=== PATIENT | male | born 1980 | race African-American/Black ===

== ENCOUNTER 2017-05-30 13:00 | Inpatient (IN) | payer OTHER ==
--- NOTE | ~2017-05-30 | PN ---
Unit #: [id number] #: [id number] Patient: SARABJIT MART [id number] [facility] [address] [place] [address] [id number] I MR#: [id number] NAME: SARABJIT MART ROOM: [facility] Age: 37 Sex: M Admission Date: 05/30/2017 : 1980 Attending Physician: Jose Raul Shea M.D. Admitting Physician: Jose Raul Shea M.D. Primary Care Physician: Primary Care Physician Elaine AYOUB PROGRESS NOTES DATE May 31, 2017 DISCUSSION Mr. Mart is a 37-year-old male, who was seen today and chart was reviewed and the case was discussed with the staff. He states that he is not requesting any medication but he just wants to get clean from drugs and wants to be able to go to intermodal customer service level of care. Meanwhile, he has been polite, pleasant, and cooperative with the treatment recommendations. MENTAL STATUS EXAMINATION Young male, who was casually dressed with fair personal hygiene and appears to be in no acute distress or discomfort. He was awake and alert with impaired attention and concentration. His mood is anxious with a congruent affect. He denies any suicidal or homicidal ideations. His insight and judgment remain slightly impaired. TREATMENT PLAN We will continue him on his current medications and treatment protocol, and will monitor his response to the medications, and make further adjustments as needed. Dictated by... Emmanuel Falk/anil TD: 06/01/2017 08:39 JOB #: [id number] Unit #: [id number] #: [id number] Patient: SARABJIT MART PROGRESS NOTES Page 1 of 1 X Jose Raul Shea MD PROGRESS NOTE
--- NOTE | ~2017-05-30 | PN ---
Unit #: [id number] #: [id number] Patient: SARABJIT MART [id number] [facility] [address] [place] [address] [id number] I MR#: [id number] NAME: SARABJIT MART ROOM: [facility] Age: 37 Sex: M Admission Date: 05/30/2017 : 1980 Attending Physician: Jose Raul Shea M.D. Admitting Physician: Jose Raul Shea M.D. Primary Care Physician: Primary Care Physician Elaine AZEVEDO NOTES DATE June 03, 2017 DISCUSSION Mr. Mart is a 37-year-old male, who was seen today and chart was reviewed and the case was discussed with the staff. He has been anxious, withdrawn, and rather seclusive to himself, meanwhile, he has been cooperative with the treatment recommendations and he has been taking the medications and tolerating them fairly well with no reported side effects. MENTAL STATUS EXAMINATION Young male, who was casually dressed with fair personal hygiene and appears to be in no acute distress or discomfort. He was awake and alert on interaction with impaired attention and concentration. His mood is anxious with a congruent affect. His insight and judgment remain significantly impaired. TREATMENT PLAN 1. We will continue him on his current medications and treatment protocol, and will monitor his response to the medications, and make further adjustments as needed. 2. We will continue to followup. Dictated by... Emmanuel Falk/anil TD: 06/03/2017 09:39 JOB #: [id number] Unit #: [id number] #: [id number] Patient: SARABJIT MART KATESPERANZA PROGRESS NOTES Page 1 of 1 X Jose Raul Shea MD PROGRESS NOTE
--- NOTE | ~2017-05-30 | PN ---
Unit #: [id number] #: [id number] Patient: SARABJIT MART [id number] [facility] [address] [place] [address] [id number] I MR#: [id number] NAME: SARABJIT MART ROOM: [facility] Age: 37 Sex: M Admission Date: 05/30/2017 : 1980 Attending Physician: Jose Raul Shea M.D. Admitting Physician: Jose Raul Shea M.D. Primary Care Physician: Primary Care Physician Elaine AYOUB PROGRESS NOTES DATE 06/02/2017 DISCUSSION Mr. Mart is a 37-year-old male who was seen today and chart was reviewed and case was discussed with the staff. He has been anxious, withdrawn though has not shown any agitation, irritability and appears to be rather seclusive to himself. Meanwhile, he has been cooperative with treatment recommendations and has been going to therapy groups. MENTAL STATUS EXAMINATION Young male who was casually dressed with fair personal hygiene and appears to be in no acute distress or discomfort. He was awake and alert with impaired attention and concentration. His mood was anxious with congruent affect. He ____ suicidal or homicidal ideation. His insight and judgement remains slightly impaired. TREATMENT PLAN 1. Will continue on his current medications and treatment protocol. Will monitor his response to medications and make further adjustments as needed. 2. Will continue to follow up. Dictated by... Emmanuel Falk/lux TD: 06/02/2017 20:01 JOB #: [id number] Unit #: [id number] #: [id number] Patient: SARABJIT MART KATESPERANZA PROGRESS NOTES Page 1 of 1 X Jose Raul Shea MD PROGRESS NOTE
--- NOTE | ~2017-05-30 | HP ---
Unit #: [id number] #: [id number] Patient: LOCO MART [id number] [place] [address] [id number] MR#: [id number] NAME: LOCO MART ROOM: [facility] Age: 37 Sex: M Admission Date: 05/30/2017 : 1980 Attending Physician: Jose Raul Shea M.D. Admitting Physician: Jose Raul Shea M.D. Primary Care Physician: Primary Care Physician No HISTORY AND PHYSICAL HISTORY OF PRESENT ILLNESS Loco is a 37 year old admitted to [facility] because of his illicit drug use. PAST MEDICAL HISTORY History of illicit drug use to include cocaine and marijuana. PAST SURGICAL HISTORY Nothing reported. ALLERGIES No known drug allergies. SOCIAL HISTORY Smokes, drinks alcohol rarely, admits to illicit drug use. FAMILY HISTORY Medically noncontributory. REVIEW OF SYSTEMS CONSTITUTIONAL: No fever or chills. HEENT: Denies any sore throat, ear pain or runny nose. CARDIOVASCULAR: Denies chest pain, irregular heart rhythm or palpitations. CHEST: Denies shortness of breath or cough. No hemoptysis. GASTROINTESTINAL: Denies nausea, vomiting, diarrhea or chronic constipation. ENDOCRINE: Denies history of increased thirst or urination. No recent significant weight loss or gain. GENITOURINARY: Denies dysuria, frequency, or hematuria. SKIN: Denies any rashes. HEMATOLOGIC: Denies history of increased bleeding or bruising. MUSCULOSKELETAL: Denies any hot, swollen joints. No generalized muscle pain. NEUROLOGIC: Denies problems with vision or speech. No frequent, severe headaches. No numbness, tingling or weakness in any extremities. Denies loss of bladder or bowel control. CURRENT MEDICATIONS 1. Wellbutrin XL 150 mg q day 2. Desyrel 100 mg q.h.s. p.r.n. 3. Milk of Magnesia p.r.n. 4. Maalox p.r.n. Unit #: [id number] #: [id number] Patient: LOCO MART 5. Tylenol p.r.n. 6. Nicotine patch 14 mg q day PHYSICAL EXAMINATION GENERAL: Alert, well-nourished, in no apparent distress. VITAL SIGNS: Blood pressure 124/76, heart rate 70, respirations 16, temperature 98.6. WEIGHT: 174 pounds. HEIGHT: 5'10". SKIN: Warm and dry without rash or lesion. HEENT: Normocephalic. TMs not viewed. Oral and nasal passages clear. Conjunctivae clear. Pupils equal, round and reactive to light and accommodation. Extraocular movements intact. NECK: Supple without lymphadenopathy or thyromegaly. HEART: Regular rate and rhythm without murmur. LUNGS: Clear. ABDOMEN: Soft, nontender. : Not done. EXTREMITIES: No evidence of cyanosis, clubbing or edema. Moves all extremities without focal deficit. NEUROLOGICAL: Grossly within normal limits. Cranial Nerves: II: Visual bermudez are intact. III, IV AND : Extraocular movements are intact. Pupils are equal, round and reactive to light. V: Facial sensation is grossly normal. VII: Facial movements and expression are normal. VIII: Auditory acuity grossly intact. IX, X: Uvula is midline. Phonation is normal. XI: Patient shrugs shoulders and turns head normally. XII: Tongue protrudes in the midline. Sensory and Motor Function: Sensory and motor sensation is grossly normal. Motor: moves all extremities well. Coordination: Gait is normal. Deep Tendon Reflexes: Intact. IMPRESSION Psychiatric admission RECOMMENDATIONS PSYCHIATRIC: Per psychiatrist. MEDICAL: I see no contraindications to participating in facility's activities. MEDICAL PROGNOSIS Good. MEDICAL CONDITION Stable. Dictated by... Ed Orourke/zofia TD: 06/01/2017 01:03 Unit #: [id number] #: [id number] Patient: LOCO MART JOB #: [id number] HISTORY AND PHYSICAL Page 1 of 1 X Guerline Cortes HISTORY AND PHYSICAL
--- NOTE | ~2017-05-30 | PA ---
Unit #: [id number] #: [id number] Patient: SARABJIT MART [id number] [facility] [address] [place] [address] [id number] MR#: [id number] NAME: SARABJIT MART ROOM: [facility] Age: 37 Sex: M Admission Date: 05/30/2017 : 1980 Date of Assessment: Attending Physician: Jose Raul Shea M.D. Admitting Physician: Jose Raul Shea M.D. Primary Care Physician: Primary Care Physician No PSYCHIATRIC ASSESSMENT IDENTIFYING DATA Mr. Sandoval is a 37-year-old, single, disabled, male, who is a resident of [place], [place], and was self-referred to the hospital on a voluntary basis. CHIEF COMPLAINT "I've a drug problem." HISTORY OF PRESENT ILLNESS Mr. Mart is a 37-year-old male with a history of substance abuse and dependence, who was self-referred to the hospital seeking treatment for chemical dependency, stating "I've a drug problem and it has gotten so bad that I want to hurt myself, really wants some help." He does report significant consequences because of his addiction and conflicts with family members, minimal support system, increasing depression, anxiety, irritability, feelings of hopelessness and helplessness, and suicidal ideation stating that he has been having thoughts to "end it" due to his hopelessness about his substance abuse issues and reports that he has had thoughts to shoot himself or hang himself. He reports that he does not want to act on these, but feels if he does not get any help, he could harm himself. He denied any homicidal thoughts; however, was seen to be a significant threat to himself; therefore, recommendation for inpatient level of care for safety and stabilization was made. SUBSTANCE ABUSE HISTORY The patient reports history of alcohol, cannabis, and cocaine abuse, and currently, he reports cannabis and cocaine to be his drug of choice and reports that he is a heavy cannabis user on a daily basis and has been on a binge of cocaine and has been using 3 g 2 to 3 times a week by snorting it. He denies any intravenous drug abuse. PAST PSYCHIATRIC HISTORY The patient has not had any prior inpatient or outpatient psychiatric treatment. Review of the medical records indicate currently he is not active in any treatment program. PAST MEDICAL HISTORY No acute or chronic medical illnesses. ALLERGIES No known medication allergies. Unit #: [id number] #: [id number] Patient: SARABJIT MART CURRENT MEDICATIONS None. PERSONAL AND SOCIAL HISTORY A 37-year-old male, who reports that he is single, unemployed, and has unstable housing, as he has been staying with different friends and family members. MENTAL STATUS EXAMINATION Young male, who was casually dressed with fair personal hygiene, appears to be in no acute distress or discomfort. He was awake and alert on interaction with intact orientation to time, place, and person. His mood was anxious and depressed with a congruent affect. Speech was slow and restricted in content. His thought processes were disorganized with some looseness of associations and suicidal ideations. His insight and judgment remain significantly impaired. DIAGNOSTIC IMPRESSION Psychiatric: Major depressive disorder, recurrent, moderate, without psychotic features; cocaine dependence, moderate; cannabis dependence, moderate. Medical: None. Stressors: Moderate psychosocial stressors. TREATMENT PLAN 1. The patient has presented with a history of mood disorder and substance abuse and has been decompensating and will need inpatient hospitalization for detoxification, safety, and stabilization. We will start him back on his home medications. We will adjust the medications and monitor response. 2. Supportive therapy was provided to the patient. 3. Safe, structured, and nourishing environment will be provided. ESTIMATED LENGTH OF STAY 5 to 7 days. ABILITY TO HELP SELF Limited. WILLINGNESS TO HELP SELF The patient appears to be willing to help self. STRENGTHS 1. Communicative. 2. Cooperative. PROBLEMS 1. Chronic dysphoric symptoms. 2. Chronic chemical dependency. 3. Poor social support system. DISCHARGE CRITERIA This will be contingent upon the patient's ability to show resolution of his depression and his ability to stay safe to himself, particularly after discharge from the hospital. Unit #: [id number] #: [id number] Patient: SARABJIT MART Dictated by..Emmanuel Cruz/rema TD: 05/31/2017 07:14 JOB #: [id number] PSYCHIATRIC ASSESSMENT Page 1 of 1 X Jose Raul Shea MD PSYCHIATRIC ASSESSMENT
--- NOTE | ~2017-05-30 | DS ---
Unit #: [id number] #: [id number] Patient: [facility]ART [id number] [facility] [address] [place] [address] [id number] I MR#: [id number] NAME: SARABJIT MART ROOM: [facility] Age: 37 Sex: M Admission Date: 05/30/2017 : 1980 Discharge Date: 06/03/2017 Attending Physician: Jose Raul Shea M.D. Primary Care Physician: Primary Care Physician No DISCHARGE SUMMARY IDENTIFYING DATA Mr. Mart is a 37-year-old male who is a resident of [place], [place] and was self-referred to the hospital. DISCHARGE DIAGNOSES Psychiatric: Major depressive disorder, recurrent, moderate, without psychotic features; cocaine dependence, moderate. Medical: None. Stressors: Moderate psychosocial stressors. HISTORY OF PRESENT ILLNESS Please see initial psychiatric evaluation for details. PAST PSYCHIATRIC HISTORY Please see initial psychiatric evaluation for details. PAST MEDICAL HISTORY Please see initial psychiatric evaluation for details. HOSPITAL COURSE The patient was admitted to the adult chemical dependency unit at [facility] and was oriented to the hospital environment. Routine p.r.n. medications were initiated, and he was started on Wellbutrin as an antidepressant; however, the patient was seen to be showing very poor insight into his situation and was refusing to accept responsibility for his presentation and was refusing to take medication and was not seen to be benefitting much from treatment and was wanting to leave and was denying any suicidal ideations, intent, or plan and as such, it was decided that he will be discharged home and will continue treatment on an outpatient basis. DISCHARGE CONDITION Stable. PROGNOSIS Guarded. Dictated by... Emmanuel Falk/rema TD: 06/23/2017 18:02 Unit #: [id number] #: [id number] Patient: SARABJIT MART JOB #: [id number] DISCHARGE SUMMARY Page 1 of 1 X Jose Raul Shea MD X DISCHARGE SUMMARY
--- NOTE | ~2017-05-30 | PN ---
Unit #: [id number] #: [id number] Patient: SARABJIT MART [id number] [facility] [address] [place] [address] [id number] I MR#: [id number] NAME: SARABJIT MART ROOM: [facility] Age: 37 Sex: M Admission Date: 05/30/2017 : 1980 Attending Physician: Jose Raul Shea M.D. Admitting Physician: Jose Raul Shea M.D. Primary Care Physician: Primary Care Physician Elaine AZEVEDO NOTES DATE OF SERVICE: 06/01/2017 SUBJECTIVE Mr. Mart is a 37-year-old male, who was seen today and chart was reviewed, and case was discussed with the staff. He has been anxious, withdrawn, and rather seclusive to himself. Meanwhile, he has been cooperative with treatment recommendations and has been taking the medications and tolerating them fairly well. MENTAL STATUS EXAMINATION Young male, who was casually dressed with fair personal hygiene, appears to be in no acute distress or discomfort. He was awake and alert with impaired attention and concentration. His mood was anxious with a congruent affect. He denies any suicidal or homicidal ideations. His insight and judgment remain slightly impaired. TREATMENT PLAN 1. We will continue on his current medications and treatment protocol. We will monitor his response and make further adjustments as needed. 2. We will continue to follow up. Dictated by... Emmanuel Falk/rodríguezl TD: 06/02/2017 01:26 JOB #: [id number] [facility] PROGRESS NOTES Page 1 of 1 X Jose Raul Shea MD PROGRESS NOTE
[2017-05-31 09:49] LABS: BASOPHIL% 0.7 % (0-2.5); EOSINOPHIL# 0.4 X10e3 (0-0.7); EOSINOPHIL% 6.9 % (0.0-7.0); HEMATOCRIT 42.3 % (38.0-50.0); HEMOGLOBIN 13.5 gm/dL (13.0-16.0); LYMPHOCYTE# 2.3 X10e3 (1.0-3.5); LYMPHOCYTE% 44.7 % (17.0-45.0); MEAN CELL VOLUME 89.9 FL (83-96); MEAN CORPUSCULAR HEMOGLOBIN 28.8 PG (28-34); MEAN PLATELET VOLUME 9.3 FL (6.5-11.5); MONOCYTE# 0.5 X10e3 (0-1.0); MONOCYTE% 10.1 % (3.0-12.0); NEUTROPHIL% 37.6 % (40-75); PLATELET COUNT 208 X10e3 (140-420); RED CELL DISTRIBUTION WIDTH 14.4 % (11.0-15.5); WHITE BLOOD COUNT 5.2 X10e3 (4.0-10.5)
[2017-05-31 10:04] LABS: DIFF IND NO
[2017-05-31 10:22] LABS: BILIRUBIN,TOTAL 0.4 mg/dL (0.2-2.0); BUN/CREATININE RATIO 12.5; CALCIUM SERUM 9.1 mg/dL (8.4-10.2); CREATININE SERUM 1.2 mg/dL (0.6-1.4); GLOM FILT RATE Estimated 88.4 mL/min (>60); POTASSIUM 4.7 mmol/L (3.5-5.1); PROTEIN TOTAL SERUM 6.4 g/dL (6.0-8.3)
[2017-06-02 09:57] LABS: URINE APPEARANCE CLEAR; URINE BILIRUBIN NEG (NEG); URINE BLOOD NEG (NEG); URINE COLOR YELLOW; URINE GLUCOSE NEG (NEG); URINE KETONE NEG (NEG); URINE LEUKOCYTE ESTERASE NEG (NEG); URINE NITRATE NEG (NEG); URINE PH 5.5 (5-8); URINE PROTEIN NEG (NEG); URINE SPECIFIC GRAVITY 1.017 (1.003-1.035); URINE UROBILINOGEN 0.2 MG/DL (NEG)
[2017-06-02 10:17] LABS: AMPHETAMINE NEG (NEG); BARBITURATES NEG (NEG); BENZODIAZEPINES NEG (NEG); COCAINE POS (NEG); MARIJUANA POS (NEG); OPIATES NEG (NEG); TRICYCLIC ANTIDEPRESSANTS NEG (NEG); U METHADONE NEG (NEG)
== END 2017-06-03 14:00 | DRG 885 ==
LOC: P1E 15:11
PROVIDERS: Psychiatry & Neurology Psychiatry
DX: F33.1 Major depressive disorder, recurrent, moderate (principal); F14.20 Cocaine dependence, uncomplicated; F12.20 Cannabis dependence, uncomplicated; F17.200 Nicotine dependence, unspecified, uncomplicated
CPT/HCPCS: 80053; 80307; 81003; 85025

== ENCOUNTER 2017-06-20 16:00 | Inpatient (IN) | payer OTHER ==
[~2017-06-20] VITALS: Ht 175.3 cm; Wt 81.6 kg
--- NOTE | ~2017-06-20 | PN ---
Unit #: [id number] #: [id number] Patient: SARABJIT MART [id number] [facility] [address] [place] [address] [id number] I MR#: [id number] NAME: SARABJIT MART ROOM: [facility] Age: 37 Sex: M Admission Date: 06/20/2017 : 1980 Attending Physician: Jose Raul Shea M.D. Admitting Physician: Jose Raul Shea M.D. Primary Care Physician: Primary Care Physician Elaine AYOUB PROGRESS NOTES DATE 06/22/2017 DISCUSSION Mr. Mart is a 37-year-old, male who was seen today and chart was reviewed and case was discussed with the staff. She has been anxious, withdrawn and rather seclusive to herself. She has been cooperative with treatment recommendations. She has been taking the medication and tolerating them fairly well with no reported side effects. MENTAL STATUS EXAM Young male who was casually dressed with fair personal hygiene, appears to be in no acute distress or discomfort. She was awake and alert with impaired attention and concentration. Her mood was anxious with congruent affect. She denies any suicidal or homicidal ideation. His insight and judgement remains slightly impaired. TREATMENT PLAN 1. We will continue him on his current medications and treatment protocol. We will monitor her response and make further adjustments as needed. 2. We will continue to follow up. Dictated by... Emmanuel Falk/zofia TD: 06/22/2017 22:13 JOB #: [id number] Unit #: [id number] #: [id number] Patient: SARABJIT MART PROGRESS NOTES Page 1 of 1 X Jose Raul Shea MD PROGRESS NOTE
--- NOTE | ~2017-06-20 | HP ---
Unit #: [id number] #: [id number] Patient: LOCO MART [id number] [facility] [address] [place] [address] [id number] MR#: [id number] NAME: LOCO MART ROOM: [facility] Age: 37 Sex: M Admission Date: 06/20/2017 : 1980 Attending Physician: Jose Raul Shea M.D. Admitting Physician: Jose Raul Shea M.D. Primary Care Physician: Primary Care Physician No HISTORY AND PHYSICAL HISTORY AND PHYSICAL COMPLETED 06/20/2017 Loco is a 37-year-old male, admitted on 06/20/2017 for substance abuse. He has recent admission for the same, recently admitted on 05/30/2017. I reviewed the history and physical from that admission and there are no changes. Dictated by... Nicolasa Bonds TD: 06/21/2017 12:37 JOB #: [id number] HISTORY AND PHYSICAL Page 1 of 1 X JOHN CUNNINGHAM APRN HISTORY AND PHYSICAL
--- NOTE | ~2017-06-20 | PA ---
Unit #: [id number] #: [id number] Patient: SARABJIT RAMIREZ [id number] [facility] [address] [place] [address] [id number] I MR#: [id number] NAME: SARABJIT RAMIREZ ROOM: [facility] Age: 37 Sex: M Admission Date: 06/20/2017 : 1980 Date of Assessment: Attending Physician: Jose Raul Shea M.D. Admitting Physician: Jose Raul Shea M.D. Primary Care Physician: Primary Care Physician No PSYCHIATRIC ASSESSMENT IDENTIFYING DATA Mr. Ramirez is a 37-year-old single male, who is a resident of [place], [place], and is known to me from previous encounter as he was under my care earlier this month and decided to leave against medical advice. Now brought himself back to the hospital on voluntary basis. CHIEF COMPLAINT "I am here due to suicidal ideations and plan to get a gun and shoot myself". HISTORY OF PRESENT ILLNESS Mr. Ramirez is a 37-year-old male, who presented to [facility], reporting suicidal ideation and a plan and stated they feel like he does not want to be here and "so much bad has happened to me over my life, all of my good family members are and the ones who are living want me to continue selling drugs in order to support them." The patient stated his living environment is not safe. He cannot get a job because he does not have an ID and cannot use the computer. Reports he was here at the beginning of the month, but he felt ignored and asked to leave but did not understand that he was leaving against medical advice. The patient states that he wants to send away to treatment somewhere that is long-term and stated that he has remained clean for about 10 days, but used cocaine twice and most recently was last night. He does endorse increasing depression, anxiety, feelings of hopelessness and helplessness and suicidal ideations with intent and plan to get a gun and shoot himself and that he frequently has been thinking about killing himself due to his life experience and as such, recommendation for inpatient level of care for safety and stabilization was made and the patient stepped up to the inpatient unit. SUBSTANCE ABUSE HISTORY The patient reports history of alcohol, cannabis, and cocaine abuse, and currently cocaine appears to be his drug of choice. He has been using cannabis regularly as well. PAST PSYCHIATRIC HISTORY The patient has had history of inpatient psychiatric treatment at [facility] and review of the medical records indicate currently he is not active in treatment program and is not seeing a psychiatrist, and is not taking any psychotropic medications. PAST MEDICAL HISTORY Unit #: [id number] #: [id number] Patient: SARABJIT RAMIREZ No acute or chronic medical illnesses. ALLERGIES No known medication allergies. CURRENT MEDICATIONS None. PERSONAL AND SOCIAL HISTORY A 37-year-old male, who reports that he is single, unemployed, and essentially homeless and has poor social support system. MENTAL STATUS EXAMINATION Young male, who was casually dressed with fair personal hygiene, appears to be in no acute distress or discomfort. He was awake and alert on interaction with intact orientation to time, place, and person. His mood was anxious and depressed with a congruent affect. His speech was slow and restricted in content. His thought processes were disorganized with some looseness of associations and suicidal ideations. His insight and judgment remain significantly impaired. DIAGNOSTIC IMPRESSION Psychiatric: Major depressive disorder, recurrent, moderate, without psychotic features; cocaine dependence, moderate; cannabis abuse, moderate. Medical: None. Stressors: Moderate psychosocial stressors. TREATMENT PLAN 1. The patient has presented with history of mood disorder and substance abuse and has been decompensating and will need inpatient hospitalization for safety and stabilization. We will start him back on his home medications. We will adjust the medications. We will also recommend antidepressant therapy. 2. Supportive therapy was provided to the patient. 3. Safe, structured, and nourishing environment will be reported. ESTIMATED LENGTH OF STAY 4 to 5 days. ABILITY TO HELP SELF Limited. WILLINGNESS TO HELP SELF The patient appears to be willing to help self. STRENGTHS 1. Communicative. 2. Cooperative. PROBLEMS 1. Chronic dysphoric symptoms. 2. Chronic chemical dependency. 3. Poor social support system. DISCHARGE CRITERIA This will be contingent upon the patient's ability to show resolution of Unit #: [id number] #: [id number] Patient: SARABJIT RAMIREZ his depression and anxiety and his ability to stay safe to himself, particularly after discharge from the hospital. Dictated by... Jose Raul Shea M.D. SIGRID/rema TD: 06/21/2017 07:09 JOB #: [id number] PSYCHIATRIC ASSESSMENT Page 1 of 1 X Jose Raul Shea MD PSYCHIATRIC ASSESSMENT
--- NOTE | ~2017-06-20 | DS ---
Unit #: [id number] #: [id number] Patient: SARABJIT RAMIREZ [id number] [facility] [address] [place] [address] [id number] MR#: [id number] NAME: SARABJIT RAMIREZ ROOM: [facility] Age: 37 Sex: M Admission Date: 06/20/2017 : 1980 Discharge Date: 06/23/2017 Attending Physician: Jose Raul Shea M.D. Primary Care Physician: Primary Care Physician No DISCHARGE SUMMARY IDENTIFYING DATA Mr. Ramirez is a 37-year-old, single, male, who is a resident of [place], [place], and is known to us from previous encounter, was recently discharged from my care and was self-referred back to the hospital. DISCHARGE DIAGNOSES Psychiatric: Major depressive disorder, recurrent, moderate, without psychotic features; cocaine dependence, moderate. Medical: None. Stressors: Moderate psychosocial stressors. HISTORY OF PRESENT ILLNESS Please see initial psychiatric evaluation for details. PAST PSYCHIATRIC HISTORY Please see initial psychiatric evaluation for details. PAST MEDICAL HISTORY Please see initial psychiatric evaluation for details. HOSPITAL COURSE The patient was admitted to the adult [facility] and was oriented to the hospital environment. Routine p.r.n. medications were initiated, and he was started back on his home medications and medications were adjusted and Wellbutrin was started to help with depression and was closely monitored. He was taking the medications regularly and he is tolerating them fairly well and was able to show a decent therapeutic response with improvement in depression and anxiety, and was willing to continue treatment on an outpatient basis and as such, it was decided that he will be discharged home and will continue treatment on an outpatient basis. DISCHARGE MEDICATIONS Wellbutrin XL 150 mg in the morning for depression. DISCHARGE CONDITION Stable. PROGNOSIS Fair. Unit #: [id number] #: [id number] Patient: SARABJIT RAMIREZ Dictated by... Emmanuel Falk/rema TD: 06/23/2017 06:56 JOB #: [id number] DISCHARGE SUMMARY Page 1 of 1 X Jose Raul Shea MD X DISCHARGE SUMMARY
[2017-06-21 12:30] LABS: BASOPHIL# 0.1 X10e3 (0-0.3); BASOPHIL% 1.2 % (0-2.5); EOSINOPHIL# 0.5 X10e3 (0-0.7); EOSINOPHIL% 9.9 % (0.0-7.0); HEMATOCRIT 40.4 % (38.0-50.0); HEMOGLOBIN 13.5 gm/dL (13.0-16.0); LYMPHOCYTE# 1.5 X10e3 (1.0-3.5); LYMPHOCYTE% 31.2 % (17.0-45.0); MEAN CELL VOLUME 88.9 FL (83-96); MEAN CORPUSCULAR HEMOGLOBIN 29.8 PG (28-34); MEAN CORPUSCULAR HGB CONC 33.5 g/dL (30-36); MEAN PLATELET VOLUME 8.8 FL (6.5-11.5); MONOCYTE# 0.5 X10e3 (0-1.0); MONOCYTE% 10.3 % (3.0-12.0); NEUTROPHIL# 2.2 X10e3 (1.5-7.1); NEUTROPHIL% 47.4 % (40-75); PLATELET COUNT 201 X10e3 (140-420); RED BLOOD COUNT 4.54 X10e (3.90-5.60); RED CELL DISTRIBUTION WIDTH 14.7 % (11.0-15.5); WHITE BLOOD COUNT 4.7 X10e3 (4.0-10.5)
[2017-06-21 12:33] LABS: DIFF IND NO
[2017-06-21 13:10] LABS: ALBUMIN SERUM 3.6 g/dL (3.5-5.0); BILIRUBIN,TOTAL 0.5 mg/dL (0.2-2.0); BUN/CREATININE RATIO 10.76; CALCIUM SERUM 9.4 mg/dL (8.4-10.2); CREATININE SERUM 1.3 mg/dL (0.6-1.4); GLOM FILT RATE Estimated 80.3 mL/min (>60); POTASSIUM 4.4 mmol/L (3.5-5.1); PROTEIN TOTAL SERUM 6.3 g/dL (6.0-8.3)
[2017-06-23 10:29] LABS: AMPHETAMINE NEG (NEG); BARBITURATES NEG (NEG); BENZODIAZEPINES NEG (NEG); COCAINE POS (NEG); MARIJUANA POS (NEG); OPIATES NEG (NEG); TRICYCLIC ANTIDEPRESSANTS NEG (NEG); U METHADONE NEG (NEG)
[2017-06-23 10:36] LABS: URINE APPEARANCE CLEAR; URINE BILIRUBIN NEG (NEG); URINE BLOOD NEG (NEG); URINE COLOR YELLOW; URINE GLUCOSE NEG (NEG); URINE KETONE NEG (NEG); URINE LEUKOCYTE ESTERASE NEG (NEG); URINE NITRATE NEG (NEG); URINE PH 6.5 (5-8); URINE PROTEIN NEG (NEG); URINE SPECIFIC GRAVITY 1.022 (1.003-1.035)
== END 2017-06-23 13:05 | disposition home or self-care (01) | DRG 885 ==
LOC: P1E 18:27 → POF 18:27 → P1E 22:03
PROVIDERS: Psychiatry & Neurology Psychiatry
DX: F33.1 Major depressive disorder, recurrent, moderate (principal); F14.20 Cocaine dependence, uncomplicated; F12.10 Cannabis abuse, uncomplicated
CPT/HCPCS: 80053; 80307; 81003; 85025